=== PATIENT | female | born 2000 | race Caucasian/White ===

== ENCOUNTER 2018-11-14 23:38 | Emergency (ER) | payer OTHER ==
[~2018-11-14] VITALS: Ht 154.9 cm; Wt 81.7 kg
[~2018-11-14 23:38] MED LIST: AMOX250 PO; ANTOXYBENA OT
== END 2018-11-15 04:17 | disposition home or self-care (01) ==
LOC: ER 23:38
DX: S93.402A Sprain of unspecified ligament of left ankle, initial encounter (principal); W01.0XXA Fall on same level from slipping, tripping and stumbling without subsequent striking against object, initial encounter
CPT/HCPCS: 73610; 99283-25

== ENCOUNTER 2020-08-01 17:34 | Emergency (ER) | payer OTHER ==
[~2020-08-01] VITALS: Ht 154.9 cm; Wt 90.7 kg
[2020-08-01] MEDS ORDERED: MECL12.5 PO (18:12)
== END 2020-08-01 18:25 | disposition home or self-care (01) ==
LOC: ER 17:34
DX: R42 Dizziness and giddiness (principal)
CPT/HCPCS: 99283